=== PATIENT | female | born 1940 | race Caucasian/White ===

== ENCOUNTER → 2016-07-29 | Outpatient (CLI) | payer MEDICARE, OTHER | LOC: GMAB 11:11 | PROVIDERS: ATTEND Family Medicine | DX: I10 Essential (primary) hypertension (principal) ==

== ENCOUNTER → 2016-08-06 | Outpatient (CLI) | payer MEDICARE, OTHER | LOC: GMAB 15:55 | PROVIDERS: ATTEND Family Medicine | DX: N39.0 Urinary tract infection, site not specified (principal) ==

== ENCOUNTER → 2016-08-20 | Outpatient (CLI) | payer MEDICARE, OTHER ==
--- NOTE | 2016-08-20 14:44 | MAM ---
EXAM DESCRIPTION: MAMMO BREAST SCREENING BILATERAL CAD, images were reviewed with CAD technology, R2 computer-aided detection. CLINICAL HISTORY: [facility]. COMPARISON: 2012. FINDINGS: Routine views are obtained. Scattered glandular pattern with the increased mammographic density with stable parenchymal pattern. No dominant mass, architectural distortion or clustered microcalcification.. IMPRESSION: Benign exam. BIRAD CATEGORY: 2 BENIGN RECOMMENDATIONS: FOLLOW-UP: Routine screening mammogram in one year. According to the [employer], yearly mammograms are recommended starting at age 40 and continuing as long as a woman is in good health. Any breast change noted on a breast self-exam should be reported promptly to the patient's healthcare provider. Breast MRI is recommended for women with an approximately 20-25% or greater lifetime risk of breast cancer, including women with a strong family history of breast or ovarian cancer and women who have been treated for Hodgkin's disease. Electronically signed by: Genet Urban 08/20/2016 14:42
== END ==
LOC: MAMMO 09:43
PROVIDERS: ATTEND Family Medicine
DX: Z12.31 Encounter for screening mammogram for malignant neoplasm of breast (principal)

== ENCOUNTER → 2017-08-26 | Outpatient (CLI) | payer MEDICARE, OTHER ==
--- NOTE | 2017-09-01 11:35 | MAM ---
EXAM DESCRIPTION: 3D Screening BILATERAL : Digital Mammography. CLINICAL HISTORY: 77 years Female SCREENING . No complaints. Self-right breast cancer and sister with breast cancer. Postmenopausal. Taking HRT 5 or more years ago. Bilateral breast biopsy with right lumpectomy. COMPARISON: 2-D digital screening bilateral studies 09/17/2016 and 08/02/2014.. Report from prior examination also reviewed. TECHNIQUE: Bilateral CC and MLO projection full-field images, 3-D tomosynthesis digital mammographic technique. Also bilateral synthesized CC/ MLO full-field images. CAD not utilized. FINDINGS: The breast parenchymal density pattern is: Heterogeneously dense breast tissue, which may obscure small masses. No skin thickening or nipple retraction deformity of the right breast which is smaller than the left breast. Skin marker indicating surgical site upper outer quadrant right breast. Bilateral solitary microcalcifications. Bilateral axillary lymph nodes. Bilateral vascular calcifications. No focal, stellate mass or density, focal asymmetry , and no suspicious microcalcifications bilaterally. Stable mammograms compared to prior study, taking into account differences in mammographic technique IMPRESSION: BI-RADS CATEGORY: 2 - BENIGN FINDINGS. FOLLOW UP: Routine digital bilateral screening, one year interval from August 2017. Written communication explaining the IMPRESSION and follow-up, will be mailed to the patient and referring health care provider. According to the [employer], yearly mammograms are recommended starting at age 40 and continuing as long as a woman is in good health. Any breast change noted on a breast self-exam should be reported promptly to the patient's healthcare provider. Breast MRI is recommended for women with an approximately 20-25% or greater lifetime risk of breast cancer, including women with a strong family history of breast or ovarian cancer and women who have been treated for Hodgkin's disease. A negative mammographic report should not delay tissue diagnosis in patients with significant clinical history or physical findings. Extremely dense breast tissue limits the sensitivity of digital mammography. Electronically signed by: Richard Lang MD 09/01/2017 11:[address]
== END ==
LOC: MAMMO 13:30
PROVIDERS: ATTEND Family Medicine
DX: Z12.31 Encounter for screening mammogram for malignant neoplasm of breast (principal)

== ENCOUNTER → 2017-08-27 | Outpatient (CLI) | payer MEDICARE, OTHER | LOC: GMAB 10:03 | PROVIDERS: ATTEND Family Medicine | DX: E53.8 Deficiency of other specified B group vitamins (principal); D50.9 Iron deficiency anemia, unspecified; I10 Essential (primary) hypertension ==

== ENCOUNTER → 2017-12-03 | Outpatient (CLI) | payer MEDICARE, OTHER ==
--- NOTE | 2017-12-03 15:03 | RAD ---
EXAM DESCRIPTION: Hip,Left 2 Views CLINICAL HISTORY: 77 years Female, HIP PAIN COMPARISON: None. FINDINGS: Two views of the left hip show no acute fracture or malalignment. The left hip joint space is well-maintained. Degenerative calcification is noted adjacent to the greater trochanter. The soft tissues are unremarkable. IMPRESSION: Mild degenerative changes, but no acute left hip abnormality. Electronically signed by: Albert Griffiths MD 12/03/2017 3:02 PM CDT
--- NOTE | 2017-12-03 15:04 | RAD ---
EXAM DESCRIPTION: Pelvis CLINICAL HISTORY: 77 years Female, PELVIC PAIN COMPARISON: None. FINDINGS: Single AP view of the pelvis shows no acute fracture or malalignment. The hip joint spaces are well-maintained. The sacroiliac joints are unremarkable. There are at least mild degenerative changes at L4-5 and L5-S1 including disc space narrowing. IMPRESSION: Degenerative changes in the lower lumbar spine, but no acute pelvic abnormality. Electronically signed by: Albert Griffiths MD 12/03/2017 3:02 PM CDT
== END ==
LOC: RAD 08:19
PROVIDERS: ATTEND Orthopaedic Surgery
DX: M25.552 Pain in left hip (principal)

== ENCOUNTER → 2017-12-07 | Outpatient (CLI) | payer MEDICARE, OTHER ==
--- NOTE | 2017-12-07 10:30 | MRI ---
MRI left hip without contrast INDICATION: Hip pain osteoarthrosis TECHNIQUE: Noncontrast MR imaging left hip standard protocol FINDINGS: There is focal pseudarthrosis of the transitional lumbosacral articulation left side L5-S1 with adjacent reactive edema. Correlate with tenderness in this area. Moderate left and small right hip effusions. Mild tendinopathy of the gluteal tendons without rupture or retraction No osteonecrosis or fracture in the hips. No hamstring rupture or retraction. Mild degenerative changes of the left acetabular labrum. Small probable Bartholin's cyst series 601 image 15. There are fragmented enthesophytes/ossifications bilateral gluteal regions. Multiple small uterine fibroids are noted. There is interstitial tendinopathy and partial tearing of the distal left iliopsoas tendon with partial delamination. IMPRESSION: Gluteal tendinopathy and mild chronic partial tearing bilateral left greater than right without complete rupture Interstitial tendinopathy and mild partial tear of the iliopsoas tendon left hip correlate with anterior and groin pain Mild degenerative changes left acetabular labrum without displaced tear Focal pseudarthrosis with active marrow edema left L5-S1 Probable bartholin cyst left inferior pelvis Fibroid uterus with multiple small low signal intensity masses. Fragmented enthesophytes bilateral gluteal regions. Electronically signed by: Brandan Richards MD 12/07/2017 10:29 AM CDT
== END ==
LOC: MRI 08:00
PROVIDERS: ATTEND Orthopaedic Surgery
DX: M16.12 Unilateral primary osteoarthritis, left hip (principal)

== ENCOUNTER → 2018-10-07 | Outpatient (CLI) | payer MEDICARE, OTHER ==
--- NOTE | 2018-10-11 14:41 | MAM ---
EXAM DESCRIPTION: 3D Screening BILATERAL : Digital Mammography. CLINICAL HISTORY: 78 years Female SCREENING . No complaints. Right breast cancer with lumpectomy and treatment. Sister with breast cancer. Childbirth. Postmenopausal 10 years. HRT 5 or more years ago. Biopsy left breast. Lifetime risk of developing breast cancer (Tyrer-Cuzick model)(%): Not calculated due to personal history of breast cancer. COMPARISON: Bilateral screening digital breast tomosynthesis 08/26/2017. 2-D digital screening bilateral mammography 08/20/2016. TECHNIQUE: Bilateral CC and MLO projection full-field images, digital tomosynthesis mammographic technique. Bilateral digital 2-D full-field MLO images. CAD not available for tomosynthesis or 2-D images. FINDINGS: The breast parenchymal density pattern is: Heterogeneously dense breast tissue, which may obscure small masses. Skin thickening and nipple retraction associated with architectural distortion lateral right breast stable. No right nipple retraction or skin thickening.. Architectural distortion on the superior lateral quadrant of the right breast where prior catheter located in treatment given. Stable architectural distortion in the right axilla compared to the examination 2017. Bilateral microcalcifications and vascular calcifications. Left axillary lymph nodes. No new focal, stellate mass or density, focal asymmetry , and no suspicious microcalcifications bilaterally. Stable mammograms compared to prior study. IMPRESSION: Benign exam. BIRAD CATEGORY: 2 BENIGN FINDINGS. RECOMMENDATIONS: FOLLOW UP: Routine digital bilateral mammographic screening, one year interval from September 2018. Written communication explaining the IMPRESSION and follow-up, will be mailed to the patient and referring health care provider. According to the [employer], yearly mammograms are recommended starting at age 40 and continuing as long as a woman is in good health. Any breast change noted on a breast self-exam should be reported promptly to the patient's healthcare provider. Breast MRI is recommended for women with an approximately 20-25% or greater lifetime risk of breast cancer, including women with a strong family history of breast or ovarian cancer and women who have been treated for Hodgkin's disease. A negative mammographic report should not delay tissue diagnosis in patients with significant clinical history or physical findings. Extremely dense breast tissue limits the sensitivity of digital mammography. Electronically signed by: Richard Lang MD 10/11/2018 2:38 PM CDT
== END ==
LOC: MAMMO 13:18
PROVIDERS: ATTEND Family Medicine
DX: Z12.31 Encounter for screening mammogram for malignant neoplasm of breast (principal)

== ENCOUNTER → 2018-10-14 | Outpatient (CLI) | payer MEDICARE, OTHER | LOC: GMAE 12:04 | PROVIDERS: ATTEND Family Medicine | DX: I10 Essential (primary) hypertension (principal) ==

== ENCOUNTER → 2019-02-09 | Outpatient (CLI) | payer MEDICARE, OTHER | LOC: GMAE 10:33 | PROVIDERS: ATTEND Family Medicine | DX: D64.9 Anemia, unspecified (principal) ==

== ENCOUNTER → 2019-02-16 | Outpatient (CLI) | payer MEDICARE, OTHER | LOC: LAB.O 10:51 | PROVIDERS: ATTEND Internal Medicine Medical Oncology | DX: R79.89 Other specified abnormal findings of blood chemistry (principal) ==

== ENCOUNTER → 2019-12-07 | Outpatient (CLI) | payer MEDICARE, OTHER | LOC: GMAE 11:19 | PROVIDERS: ATTEND Family Medicine | DX: D50.9 Iron deficiency anemia, unspecified (principal) ==

== ENCOUNTER → 2020-01-27 | Outpatient (CLI) | payer MEDICARE, OTHER | LOC: GMAE 10:18 | PROVIDERS: ATTEND Family Medicine | DX: I10 Essential (primary) hypertension (principal) ==